=== PATIENT | male | born 1980 | race Caucasian/White ===

== ENCOUNTER 2020-07-22 08:36 | Outpatient (CLI) | payer BC, SELFPAY ==
--- NOTE | 2020-07-22 08:55 | XR_ITS ---
WS: [id number] LEFT ANKLE: 2 VIEW(S) TECHNIQUE: AP and lateral. HISTORY: PAIN IN LEFT ANKLE AND JOINTS OF LEFT FOOT COMPARISON: None available. Normal anatomic alignment with no fracture or dislocation. No joint effusion or widening of the ankle mortise. No significant degenerative changes at the joint spaces. No soft tissue abnormality. XR/XR ankle LT 2V [id number] IMPRESSION: Normal LEFT ankle.
== END 2020-07-22 08:37 | disposition home or self-care (01) ==
PROVIDERS: Visit Provider Family Medicine Adult Medicine
DX: M25.572 Pain in left ankle and joints of left foot (principal)
CPT/HCPCS: 73600